=== PATIENT | female | born 1970 | race Caucasian/White ===

== ENCOUNTER 2017-02-24 21:13 | Emergency (ER) | payer OTHER ==
[~2017-02-24] VITALS: Ht 157.5 cm; Wt 77.1 kg
[2017-02-24 23:03] VITALS: BP 121/80
[2017-02-25] MEDS ORDERED: methylPREDNISolone SOD SUCC 125 MG/2 ML VL IM ONE
[2017-02-25] MEDS ORDERED: KETOROLAC TROMETH 60MG/2ML VIAL IM ONE
== END 2017-02-25 00:17 | disposition home or self-care (01) ==
LOC: ER 21:15
DX: S33.5XXA Sprain of ligaments of lumbar spine, initial encounter (principal); M79.1 Myalgia; F17.210 Nicotine dependence, cigarettes, uncomplicated; Z88.2 Allergy status to sulfonamides; X58.XXXA Exposure to other specified factors, initial encounter; Y93.89 Activity, other specified; Y99.8 Other external cause status; Y92.89 Other specified places as the place of occurrence of the external cause
CPT/HCPCS: 72131; 81025; 99285; J1885; J2930

== ENCOUNTER 2017-03-01 14:51 | Emergency (ER) | payer OTHER ==
[~2017-03-01] VITALS: Ht 157.5 cm; Wt 80.8 kg
[2017-03-01 15:25] VITALS: BP 126/61
== END 2017-03-01 15:50 | disposition home or self-care (01) ==
LOC: ER 15:09
DX: J02.9 Acute pharyngitis, unspecified (principal); Z88.2 Allergy status to sulfonamides